=== PATIENT | female | born 1995 | race African-American/Black ===

== ENCOUNTER 2017-10-17 10:55 | Emergency (ER) | payer SELFPAY ==
[2017-10-17 12:40] LABS: NEGATIVE OBC STREP NEG; POSITIVE OBC STREP POS
== END 2017-10-17 13:15 | disposition home or self-care (01) ==
LOC: ER 10:55
DX: J02.8 Acute pharyngitis due to other specified organisms (principal); B97.89 Other viral agents as the cause of diseases classified elsewhere; Z91.018 Allergy to other foods
CPT/HCPCS: 87070; 87880; 99283

== ENCOUNTER 2020-08-07 12:23 | Emergency (ER) | payer OTHER ==
[~2020-08-07] VITALS: Ht 154.9 cm; Wt 81.3 kg
[~2020-08-07 12:23] MED LIST: DOCU-109 PO; FERR325T72 PO; NAPR-514 PO; OXYC1TAB15 PO; PRED50TA PO
[2020-08-07 13:15] LABS: BILIRUBIN,URINE NEGATIVE (NEG); CLARITY,URINE CLEAR; COLOR,URINE YELLOW; NITRITE,URINE NEGATIVE (NEG); PH,URINE 5.5 (<5.0-8.0); PROTEIN,URINE NEGATIVE (NEG-TRACE); UROBILINOGEN,URINE 0.2 mg/dL (0.2 mg/dL)
[2020-08-07 13:24] LABS: BASO # 0.1 x10^3/uL (0.0-0.2); BASO % 1 % (0-3); EOS # 0.1 x10^3/uL (0.0-0.7); EOS % 1 % (0-3); HEMATOCRIT 35.6 % (36.0-47.0); HEMOGLOBIN 11.4 g/dL (12.0-15.5); LYMPH # 2.8 x10^3/uL (1.0-4.8); LYMPH % 22 % (24-48); MEAN CORPUSCULAR HEMOGLOBIN 28 pg (25-35); MEAN CORPUSCULAR HGB CONC 32 g/dL (31-37); MEAN CORPUSCULAR VOLUME 88 fL (79-100); MONO # 0.9 x10^3/uL (0.0-1.1); MONO % 7 % (0-9); NEUT # 8.7 x10^3/uL (1.8-7.7); NEUT % 70 % (31-73); PLATELET COUNT 308 x10^3/uL (140-400); RED BLOOD COUNT 4.05 x10^6/uL (3.50-5.40); RED CELL DISTRIBUTION WIDTH 14.5 % (11.5-14.5); WHITE BLOOD COUNT 12.5 x10^3/uL (4.0-11.0)
[2020-08-07 13:25] LABS: BACTERIA,URINE 0 /HPF (0-FEW); RBC,URINE 0 /HPF (0-2); WBC,URINE >40 /HPF (0-4)
[2020-08-07 13:30] LABS: CALCIUM 8.6 mg/dL (8.5-10.1); CREATININE 1.1 mg/dL (0.6-1.0); GFR 73.8; POTASSIUM 4.3 mmol/L (3.5-5.1)
--- NOTE | 2020-08-07 13:34 | PHYS DOC ---
Past Medical History Past Medical History: No Pertinent History Additional Past Medical Histor: Fx Right hip Past Surgical History: Smoking Status: Never Smoker Alcohol Use: Occasionally Drug Use: None General Adult EDM: Chief Complaint: MENSTRUAL PAIN/CRAMPS HPI: HPI: 24-year-old AA F past medical history of tobacco dependence with "broken right hip," at 12yoa (no sx, SCFE?), presents to the ED reporting she started her menses today and took 2 advil tablets w/little pain relief. States her current pain is making her right hip pain worse. Denies any new trauma to the hip, is able to bear weight. States her menses is a normal flow. No history of anemia or blood transfusions. Reports she is not currently "it's been awhile," sexually active and denies any abnormal vaginal discharge, itching, odor, dysuria, hematuria, flank pain, fever, chills nausea or vomiting. Review of Systems: Review of Systems: Constitutional: Denies fever or chills. [] Eyes: Denies change in visual acuity. [] HENT: Denies nasal congestion or sore throat. [] Respiratory: Denies cough or shortness of breath. [] Cardiovascular: Denies chest pain or edema. [] GI: Denies abdominal pain, nausea, vomiting, bloody stools or diarrhea. [] : Denies dysuria, hematuria or increased urinary frequency or urgency Musculoskeletal: Denies back pain or joint pain. [] Integument: Denies rash or diaphoresis Neurologic: Denies headache, neck stiffness, focal weakness or sensory changes. [] Endocrine: Denies polyuria or polydipsia. [] Lymphatic: Denies swollen glands. [] Psychiatric: Denies depression or anxiety. [] Heart Score: Risk Factors: Risk Factors: DM, Current or recent (<one month) smoker, HTN, HLP, family h istory of CAD, obesity. Risk Scores: Score 0 - 3: 2.5% MACE over next 6 weeks - Discharge Home Score 4 - 6: 20.3% MACE over next 6 weeks - Admit for Clinical Observation Score 7 - 10: 72.7% MACE over next 6 weeks - Early Invasive Strategies Current Medications: Current Medications Medications (Trade) Dose Ordered Sig/Sparkle Start Time Stop Time Status Last Admin Dose Admin Acetaminophen (Tylenol) 1,000 mg 1X ONCE 1/11/21 13:45 08/07/20 13:46 Allergies: Allergies: Allergies Coded Allergies Type Severity Reaction Last Updated Verified cocoa butter Allergy Intermediate 06/22/18 Yes Physical Exam: PE: Constitutional: Well developed, well nourished, no acute distress, non-toxic appearance. HENT: Normocephalic, atraumatic, Eyes: EOMI, conjunctiva normal, no discharge. Neck: Normal range of motion, supple, Cardiovascular: S1/2 present, regular rhythm Lungs & Thorax: Speaking in full sentences, bilateral equal chest rise, no tachypnea or increased work of breathing Abdomen: soft, no tenderness, patient with focal tenderness to palpation over right ASIS, no Owens sign, no pain over McBurney's point, no Rovsing sign, no peritonitis or rigidity Skin: Warm, dry, no erythema, no rash. [] Back: No tenderness, no CVA tenderness. [] Extremities: No tenderness, no cyanosis, no edema Neurologic: Alert and oriented X 3, normal motor function, normal sensory function, no focal deficits noted. [] Psychologic: Affect normal, judgement normal, mood normal. [] Current Patient Data: Labs: Laboratory Tests Test 08/07/20 12:46 08/07/20 12:57 Urine Collection Type Unknown Urine Color Yellow Urine Clarity Clear Urine pH 5.5 (<5.0-8.0) Urine Specific [place] >=1.030 (1.000-1.030) Urine Protein Negative mg/dL (NEG-TRACE) Urine Glucose (UA) Negative mg/dL (NEG) Urine Ketones (Stick) Trace mg/dL (NEG) Urine Blood Moderate (NEG) Urine Nitrite Negative (NEG) Urine Bilirubin Negative (NEG) Urine Urobilinogen Dipstick 0.2 mg/dL (0.2 mg/dL) Urine Leukocyte Esterase Moderate (NEG) Urine RBC 0 /HPF (0-2) Urine WBC >40 /HPF (0-4) Urine Squamous Epithelial Cells Few /LPF Urine Bacteria 0 /HPF (0-FEW) Urine Mucus Mod /LPF POC Urine HCG, Qualitative Hcg negative (Negative) Vital Signs: Vital Signs Date Time Temp Pulse Resp B/P (MAP) Pulse Ox O2 Delivery O2 Flow Rate FiO2 08/07/20 12:35 98.3 98 18 151/89 (109) 98 Room Air 98.3 EKG: EKG: [] Radiology/Procedures: Radiology/Procedures: IMAGING REPORT Signed PATIENT: LEONARD ARIAS ACCOUNT: [id number] : 1995 LOCATION: ER AGE: 24 SEX: F EXAM STATUS: REG ER ORD. PHYSICIAN: MARK ANTHONY SANTOYO DO REASON: menstrual cramps that radiate to right hip, right hip pain PROCEDURE: HIP RIGHT 2V WITH PELVIS AP view of the pelvis and two-view study of the right hip Clinical indications: Menstrual cramps that radiates to the right hip. Right hip pain. FINDINGS: No acute fracture or dislocation or lytic process evident. No significant arthritic change is evident. IMPRESSION: No acute osseous abnormality. Electronically signed by: Good Gonzales MD (08/07/2020 1:45 PM) [id number] DICTATED and SIGNED BY: GOOD GONZALES MD DATE: 08/07/20 [id number] Course & Med Decision Making: Course & Med Decision Making Pertinent Labs and Imaging studies reviewed. (See chart for details) Concern for hip pain versus right pelvic pain in the setting of menstrual cramps. Given suspicion of SCFE at 12, pain could be attributable to arthritis, no avascular necrosis on hip x-ray. U/A with blood (on menses), > 40 wbcs, 0 bacteruria and moderate LE-this is concerning for sterile pyuria seen w/gonorrhea. On r-eeval pt does report vaginal unprotected intercourse with male partner 2 weeks ago but asymptomatic. I encouraged GC testing, pt declined. Normocyctic anemia on labs (improved from prior). Patient was informed should be treated for GC and to have her partner treated and abstain from sex for 10 days after treatment. Will discharge home with strict ED return precautions were given for worsening pain, abnormal vaginal discharge or fever. Encouraged urgent outpatient follow-up with PMD for recheck of urine in 10 days. Life- threatening processes were considered but are low suspicion at this time, given history, physical exam and ED workup. Pt was educated on all prescription medications and adverse effects. All patient's questions were answered and pt was stable at time of discharge. Life/limb-threatening differential includes but is not limited to, ectopic , septic , infection (endometritis, sti/pid, cystitis, pyelonephritis, Padmini's gangrene or necrotizing fasciitis, abscess), ovarian torsion, ruptured hemorrhagic ovarian cyst, endometriosis, ureterolithiasis, thrombophlebitis, organ prolapse, abdominal aortic aneurysm, mesenteric ischemia, neoplasm, bowel obstruction or surgical abdomen. I spoken with the patient and her caregivers. I explained the patient's condition, diagnoses and treatment plan based on the information available to me at this time. I have answered the patient and her caregiver's questions and addressed any concerns. The patient and her caregivers have a good understanding of patient's diagnosis, condition and treatment plan as can be expected at this point. Vital signs have been stable. Patient's condition is stable and appropriate for discharge from the emergency department. Patient will pursue further outpatient evaluation with primary care physician or other designated or consulting physician as outlined in the discharge instructions. The patient and/or caregivers are agreeable to this plan of care and follow-up instructions have been explained in detail. The patient and/or caregivers have received these instructions in written form and have expressed an understanding of the discharge instructions. The patient and/or caregivers are aware that any significant change of condition or worsening of symptoms should prompt immediate return to this or the closest emergency department or call to 1. Loco Disclaimer: Loco Disclaimer: This electronic medical record was generated, in whole or in part, using a voice recognition dictation system. Departure Departure Impression: Primary Impression: Hip pain Additional Impressions: Sterile pyuria Vaginal bleeding Disposition: 01 DC HOME SELF CARE/HOMELESS Condition: STABLE Referrals: NO PCP (PCP) FOLLOW UP WITH FAMILY MEDICINE to repeat U/A in 10 days Family Medicine Address: [address] [place] [id number] Patient Instructions: Hip Pain, Sexually Transmitted Disease Additional Instructions: EMERGENCY DEPARTMENT GENERAL DISCHARGE INSTRUCTIONS Thank you for coming to [facility] Emergency Department (ED) today and trusting us with you care. We trust that you had a positive experience in our Emergency Department. If you wish to speak to the department management, you may call the Director at [phone]. YOUR FOLLOW UP INSTRUCTIONS ARE FOLLOWS: 1. Do you have a private Doctor? If you do not have a private doctor, please ask for a resource list of physicians or clinics that may be able to assist you with follow up care. 2. The Emergency Physicain has interpreted your x-rays. The X-Ray specialist will also review them. If there is a change in the findings, you will be notified in 48 hours when at all possible. 3. A lab test or culture has been done, your results will be reviewed and you will be notified if you need a change in treatment. ADDITIONAL INSTRUCTIONS AND INFORMATION: 1. Your care today has been supervised by a physician who is specially trained in emergency care. Many problems require more than one evaluation for a complete diagnosis and treatment. We recommend that you schedule your follow up appointment as recommended to ensure complete treatment of you illness or injury. If you are unable to obtain follow up care and continue to have a problem, or if your condition worsens, we recommend that you return to the ED. 2. We are not able to safely determine your condition over the phone nor are we able to give sound medical advice over the phone. For these safety reasons, if you call for medical advice we will ask you to come to the ED for further evaluation. 3. If you have any questions regarding these discharge instructions please call the ED at [phone]. SAFETY INFORMATION: In the interest of safety, wellness, and injury prevention; we encourage you to wear your sealbelt, if you smoke; quite smoking, and we encourage family to use a protective helmet for bicycling and other sporting events that present an increased risk for head injury. IF YOUR SYMPTOMS WORSEN OR NEW SYMPTOMS DEVELOP, OR YOU HAVE CONCERNS ABOUT YOUR CONDITION; OR IF YOUR CONDITION WORSENS WHILE YOU ARE WAITING FOR YOUR FOLLOW UP APPOINTMENT; EITHER CONTACT YOUR PRIMARY CARE DOCTOR, THE PHYSICIAN WHOSE NAME AND NUMBER YOU WERE GIVEN, OR RETURN TO THE ED IMMEDIATELY. Scripts Doxycycline Hyclate (DOXYCYCLINE HYCLATE) 100 Mg Capsule 1 CAP PO BID for 7 Days, #14 CAP Prov: MARK ANTHONY SANTOYO DO 08/07/20 MARK ANTHONY SANTOYO DO Aug 07, 2020 13:34
[2020-08-07] MEDS ORDERED: ACETAMINOPHEN 500 MG TABLET PO ONE (13:45)
--- NOTE | 2020-08-07 13:48 | RAD ---
AP view of the pelvis and two-view study of the right hip Clinical indications: Menstrual cramps that radiates to the right hip. Right hip pain. FINDINGS: No acute fracture or dislocation or lytic process evident. No significant arthritic change is evident. IMPRESSION: No acute osseous abnormality. Electronically signed by: Paulie Gonzales MD (08/07/2020 1:45 PM) [id number]
[2020-08-07] MEDS ORDERED: DOXY100C2 PO (14:59)
[2020-08-07 15:00] VITALS: BP 126/76
[2020-08-07] MEDS ORDERED: cefTRIAXone IM 250 MG VIAL IM ONE (15:15)
== END 2020-08-07 15:18 | disposition home or self-care (01) ==
LOC: ER 12:23
DX: M25.551 Pain in right hip (principal); R82.81 Pyuria; N93.9 Abnormal uterine and vaginal bleeding, unspecified; Z87.891 Personal history of nicotine dependence; Z91.018 Allergy to other foods
CPT/HCPCS: 36415; 73502; 80048; 81001; 81025; 85025; 87086; 96372; 99284; J0696

== ENCOUNTER 2021-11-17 17:38 | Emergency (ER) | payer OTHER ==
[~2021-11-17] VITALS: Ht 154.9 cm; Wt 85.0 kg
[~2021-11-17 17:38] MED LIST changes: +DOXY100C3 PO
[2021-11-17] MEDS: IBUPROFEN 200 MG TABLET. PO ONE (18:29)
[2021-11-17] MEDS: HYDROcodone/APAP 5/325MG 1 TAB TABLET PO ONE (18:29)
--- NOTE | 2021-11-17 18:50 | RAD ---
Three-view right ankle dated 11/17/2021. No comparison available. CLINICAL INDICATION: Pain. FINDINGS: 3 views right ankle show normal bony alignment. No displaced fracture. No periostitis or bone destruc tion. No acute osseous or articular abnormality. IMPRESSION: No acute radiographic abnormality. Electronically signed by: José Luis Beatty MD (11/17/2021 6:47 PM) TD
--- NOTE | 2021-11-17 19:05 | PHYS DOC ---
Past Medical History Past Medical History: No Pertinent History Additional Past Medical Histor: Fx Right hip Past Surgical History: No Surgical History Smoking Status: Never Smoker Alcohol Use: None Drug Use: None General Adult EDM: Chief Complaint: ANKLE PROBLEM HPI: HPI: Patient is a 26-year-old female presents to the emergency department complaining of right ankle pain after she rolled her ankle while rollerskating approximately 20 minutes prior to arrival. Patient did not take any pain medications or tried any nonpharmacological pain relief methods prior to arrival to the emergency department. Patient states she felt a pop. Patient reports it is difficult to walk on it now. Patient denies other physical complaints or physical concerns. Patient states she is currently on her menstrual cycle, does not take prescription medications, does take an occasional [id number] Tylenol as needed for aches and pains, reports an allergy to cocoa butter. Review of Systems: Review of Systems: 14 body systems of review of systems have been reviewed. See HPI for pertinent positives and negative responses, otherwise all other systems are negative, nonpertinent or noncontributory. Constitutional: Negative except as outlined in HPI above. Skin: Negative except as outlined in HPI above. Eyes: Negative except as outlined in HPI above. HENT: Negative except as outlined in HPI above. Respiratory: Negative except as outlined in HPI above. Cardiovascular: Negative except as outlined in HPI above. GI: Negative except as outlined in HPI above. : Negative except as outlined in HPI above. Musculoskeletal: Negative except as outlined in HPI above. Integument: Negative except as outlined in HPI above. Neurologic: Negative except as outlined in HPI above. Endocrine: Negative except as outlined in HPI above. Lymphatic: Negative except as outlined in HPI above. Psychiatric: Negative except as outlined in HPI above. Heart Score: C/O Chest Pain: No Risk Factors: Risk Factors: DM, Current or recent (<one month) smoker, HTN, HLP, family history of CAD, obesity. Risk Scores: Score 0 - 3: 2.5% MACE over next 6 weeks - Discharge Home Score 4 - 6: 20.3% MACE over next 6 weeks - Admit for Clinical Observation Score 7 - 10: 72.7% MACE over next 6 weeks - Early Invasive Strategies Current Medications: Current Medications Medications (Trade) Dose Ordered Sig/Sparkle Start Time Stop Time Status Last Admin Dose Admin Acetaminophen/ Hydrocodone Bitart (Lortab 5/325) 1 tab 1X ONCE 11/17/21 18:15 11/17/21 18:26 DC 11/17/21 18:29 1 TAB Ibuprofen (Motrin) 600 mg 1X ONCE 11/17/21 18:15 11/17/21 18:26 DC 11/17/21 18:29 600 MG Allergies: Allergies: Allergies Coded Allergies Type Severity Reaction Last Updated Verified cocoa butter Allergy Intermediate 06/22/18 Yes Physical Exam: PE: Constitutional: Well developed, well nourished, no acute distress, non-toxic appearance. 26-year-old female in no apparent distress. HENT: Normocephalic, atraumatic. Eyes: Conjunctiva normal, no discharge. Neck: Normal range of motion, no stridor. Cardiovascular: No cyanosis appreciated, distal cap refill less than 2 seconds. Lungs & Thorax: Patient is in no respiratory distress, no audible adventitious lung sounds appreciated. Abdomen: Nontender, no abnormalities noted. Skin: Warm, dry, no erythema, no rash. Back: No tenderness, no deformities. Extremities: No tenderness, no cyanosis, no clubbing, ROM intact, no edema. Except for right ankle, patient complains of pain to palpation both medial and lateral aspect ankle, there is no swelling, no deformity, no crepitus appreciated, no edema, distal cap refill is less than 2 seconds equal bilateral lower extremities, +2 dorsalis pedis pulses equal bilateral lower extremities. There is no skin discoloration. There is no pain to proximal fibula area. Neurologic: Alert and oriented X 3, normal motor function, normal sensory function, no focal deficits noted. Psychologic: Affect normal, judgement normal, mood normal. Current Patient Data: Vital Signs: Vital Signs Date Time Temp Pulse Resp B/P (MAP) Pulse Ox O2 Delivery O2 Flow Rate FiO2 11/17/21 18:29 20 99 11/17/21 18:04 98.0 100 119/77 (91) Room Air 98.0 EKG: EKG: [] Radiology/Procedures: Radiology/Procedures: STATUS: PRE ER ORD. PHYSICIAN: JOSÉ LUIS ROSAS APRN REASON: Rolled ankle while rollerskating, felt a pop/pain PROCEDURE: ANKLE RIGHT 3V Three-view right ankle dated 11/17/2021. No comparison available. CLINICAL INDICATION: Pain. FINDINGS: 3 views right ankle show normal bony alignment. No displaced fracture. No periostitis or bone destruction. No acute osseous or articular abnormality. IMPRESSION: No acute radiographic abnormality. Electronically signed by: José Luis Beatty MD (11/17/2021 6:47 PM) [facility] Course & Med Decision Making: Course & Med Decision Making Pertinent Labs and Imaging studies reviewed. (See chart for details) 26-year-old female, vital signs reviewed, resents emerged department concerning right ankle pain after rolling it while rollerskating. An ice pack was placed, p.o. medication for pain was given, and x-ray of the right ankle was performed did not show any acute fractures, and Yannick wrap was applied, ankle stirrup splint Velcro type was applied, discussed all findings with patient, will prescribe Rx pain medications, give work excuse for 2 days, weightbearing as tolerated, strict follow-up with rehabilitation technician for ongoing pain management needs and reevaluation of ankle pain. Patient gave verbal understanding of and is amenable to ED discharge planning. Discussed with the patient all findings and diagnostic testing as well as the need to follow-up with their primary care provider for further evaluation and treatment or return to the ED if any new or worsening symptoms. Strict return precautions were also discussed at length, the patient voiced understanding and agreement with the discharge planning. The patient was nontoxic in appearance, in no apparent distress, and hemodynamically stable at the time of disposition. Dragon Disclaimer: Loco Disclaimer: This electronic medical record was generated, in whole or in part, using a voice recognition dictation system. Departure Departure Impression: Primary Impression: Right ankle sprain Qualified Codes: S93.401A - Sprain of unspecified ligament of right ankle, initial encounter Disposition: HOME / SELF CARE / HOMELESS Condition: GOOD Referrals: NO PCP (PCP) Patient Instructions: Ankle Sprain, Elastic Bandage and RICE, Splint Care-Brief Additional Instructions: You are seen today in the emergency department after injuring your right ankle. The x-ray did not show any concerning findings of bone injury. These ankle sprain injuries can be painful, we treat these with RICE therapy, this is an acronym for rest, ice, compression, elevation. A Yannick wrap was applied along with an ankle stirrup splint. Please wear for the next week or so. Please follow-up with your primary care physician for reevaluation of any ongoing ankle pain. I am prescribing you ibuprofen that you may take as directed to help assist with pain, as we discussed, ice packs 30 minutes on and 30 minutes off while awake for the next 48 to 72 hours. I am providing you a work excuse for the next 2 days, please take this time to rest and heal. Thank you for visiting our Emergency Department. It was a pleasure taking care of you today in the emergency department and we appreciate you trusting us with your care. If any additional problems come up don't hesitate to return to visit us. Please follow up with your primary care provider so they can plan additional care if needed and know about the problem that you had. If symptoms worsen come back to the E mergency Department. Any concerning symptoms that start such as chest pain, shortness of air, weakness or numbness on one side of the body, running high fevers or any other concerning symptoms return to the ER. Scripts Ibuprofen (IBUPROFEN) 600 Mg Tablet 600 MG PO PRN Q6HRS PRN for INFLAMMATION, #30 TAB 0 Refills Prov: JOSÉ LUIS ROSAS APRN 11/17/21 JOSÉ LUIS ROSAS APRN Nov 17, 2021 19:04
[2021-11-17 19:28] VITALS: BP 136/74
[2021-11-17] MEDS ORDERED: IBUP-1007 PO (19:35)
== END 2021-11-17 19:52 | disposition home or self-care (01) ==
LOC: ER 17:38
DX: S93.401A Sprain of unspecified ligament of right ankle, initial encounter (principal); Z88.8 Allergy status to other drugs, medicaments and biological substances; X50.9XXA Other and unspecified overexertion or strenuous movements or postures, initial encounter; Y93.89 Activity, other specified; Y92.89 Other specified places as the place of occurrence of the external cause; Y99.8 Other external cause status
CPT/HCPCS: 29515; 73610; 99283; A6450